=== PATIENT | male | born 1950 | race Caucasian/White ===

== ENCOUNTER → 2017-03-04 13:56 | Emergency (ER) | payer OTHER ==
[~2017-03-04 13:56] MED LIST: Amoxicillin/Clavulanate TAB* 875 MG PO ONE; Tetan/Diph/Pertus SYR(Tdap)* 0.5 ML SYR(BOOSTRIX) use SYR IM ONE
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
[2017-03-04 16:23] VITALS: BP 137/65
== END | disposition home or self-care (01) ==
LOC: ED 13:56
DX: S77.11XA Crushing injury of right thigh, initial encounter (principal); T14.8 Other injury of unspecified body region; W23.0XXA Caught, crushed, jammed, or pinched between moving objects, initial encounter; Y93.9 Activity, unspecified; Y92.9 Unspecified place or not applicable
CPT/HCPCS: 90471; 90715; 99282; A9270-GY